=== PATIENT | female | born 1955 | race Caucasian/White ===

== ENCOUNTER 2019-06-01 08:17 | Emergency (ER) | payer OTHER ==
--- NOTE | 2019-06-01 08:51 | ED ---
General Adult HPI - General Chief complaint: Recheck/Abnormal Lab/Rx Stated complaint: High BP Time Seen by Provider: 06/01/19 08:20 Source: patient Mode of arrival: ambulatory Limitations: no limitations - History of Present Illness Initial comments: The patient is a 64-year-old female with past medical history of hypertension and hyperlipidemia who presents to the emergency room with reported high blood pressure. She states that she saw her primary care physician in office one month ago and blood pressure was high in office. She does take metoprolol 25 mg, half tab twice daily. The primary care doctor was requesting that she follow up for medication changes however states that she forgot. She was then out at the store on Monday with a headache blood pressure cuff. She measured her pressures and they were close to 190 systolic. She then began measuring her blood pressures with a cough that she has at home. Reports that they continue to be around 190 systolic. She called her primary care physician yesterday and they indicated that she should start taking 1 full tablet, twice daily. She did follow these instructions and took 2 tablets yesterday and one today. She took her blood pressure today before and approximately 45 minutes after taking the medication without improvement. Reports that she has a very dull headache without vision changes. This prompted her come in to the ER for further evaluation. She denies any unilateral numbness or weakness. No neck pain or stiffness. Denies any chest pain or short of breath. No abdominal pain. No recent illnesses. Denies any abdominal pain or changes in her bowel or bladder habits. There are no alleviating, precipitating or modifying factors - Related Data Previous Rx's Medication Instructions Recorded amLODIPine [Norvasc] 5 mg PO DAILY #14 tab 06/01/19 Allergies Allergy/AdvReac Type Severity Reaction Status Date / Time No Known Allergies Allergy Verified 06/01/19 08:23 Review of Systems ROS Statement: Those systems with pertinent positive or pertinent negative responses have been documented in the HPI. ROS Other: All systems not noted in ROS Statement are negative. Past Medical History Past Medical History: Hyperlipidemia, Hypertension History of Any Multi-Drug Resistant Organisms: None Reported Past Surgical History: No Surgical Hx Reported Past Psychological History: No Psychological Hx Reported Smoking Status: Current every day smoker Past Alcohol Use History: None Reported Past Drug Use History: None Reported General Exam Limitations: no limitations General appearance: alert, in no apparent distress Head exam: Present: atraumatic, normocephalic, normal inspection Eye exam: Present: normal appearance, PERRL, EOMI. Absent: scleral icterus, conjunctival injection, periorbital swelling ENT exam: Present: normal exam, mucous membranes moist Neck exam: Present: normal inspection. Absent: tenderness, meningismus, lymphadenopathy Respiratory exam: Present: normal lung sounds bilaterally. Absent: respiratory distress, wheezes, rales, rhonchi, stridor Cardiovascular Exam: Present: regular rate, normal rhythm, normal heart sounds. Absent: systolic murmur, diastolic murmur, rubs, gallop, clicks GI/Abdominal exam: Present: soft, normal bowel sounds. Absent: distended, tenderness, guarding, rebound, rigid Extremities exam: Present: normal inspection, full ROM, normal capillary refill. Absent: tenderness, pedal edema, joint swelling, calf tenderness Back exam: Present: normal inspection Neurological exam: Present: alert, oriented X3, CN II-XII intact Psychiatric exam: Present: normal affect, normal mood Skin exam: Present: warm, dry, intact, normal color. Absent: rash Course Vital Signs 06/01/19 06/01/19 06/01/19 08:20 09:13 09:58 Temperature 97.7 F 98.1 F Pulse Rate 67 63 63 Respiratory 16 16 16 Rate Blood Pressure 203/97 193/88 177/87 O2 Sat by Pulse 99 99 99 Oximetry 06/01/19 06/01/19 10:14 10:26 Temperature Pulse Rate 70 71 Respiratory 18 Rate Blood Pressure 160/77 134/75 O2 Sat by Pulse 99 Oximetry EKG Findings - EKG Comments: EKG Findings:: EKG demonstrates a normal sinus rhythm with ventricular rate 61. CA interval 160. QRS 134. QTC of 450. No acute ST segment elevation depressions concerning for ischemic changes. There is a right bundle branch block present. Medical Decision Making - Medical Decision Making Upon arrival the patient is placed in room 2. A thorough history and physical exam was performed she was hooked up to continuous pulse ox and cardiac monitoring. As the patient is reporting dull headache at did recommend CT of the patient's brain however she refuses. She did agree to laboratory studies. CBC and CMP. TSH is 1.9. The patient's blood pressure is reevaluated and she is persistently hypertensive therefore did give the patient 20 mg of hydralazine. Repeat vitals were obtained and the patient markedly improvement in her blood pressures to 134/75. I reevaluated the patient she states she feels much improved at this time. States that her headache is completely gone. At this time I will place the patient on amlodipine 5 mg daily. She is to keep a log of her blood pressures. She needs to follow-up with her primary care physician in order to have reevaluation of her blood pressure medications and blood pressure recordings. If she has any new or worsening symptoms she should return to the emergency room. The patient was discharged home in stable condition - Lab Data Result diagrams: 06/01/19 09:10 06/01/19 09:10 Lab Results 06/01/19 06/01/19 Range/Units 09:10 09:10 WBC 9.8 (3.8-10.6) k/uL RBC 5.33 (3.80-5.40) m/uL Hgb 16.1 H (11.4-16.0) gm/dL Hct 47.1 H (34.0-46.0) % MCV 88.4 (80.0-100.0) fL MCH 30.1 (25.0-35.0) pg MCHC 34.1 (31.0-37.0) g/dL RDW 11.9 (11.5-15.5) % Plt Count 287 (150-450) k/uL Neutrophils % 74 % Lymphocytes % 17 % Monocytes % 5 % Eosinophils % 2 % Basophils % 1 % Neutrophils # 7.3 (1.3-7.7) k/uL Lymphocytes # 1.7 (1.0-4.8) k/uL Monocytes # 0.5 (0-1.0) k/uL Eosinophils # 0.2 (0-0.7) k/uL Basophils # 0.1 (0-0.2) k/uL Sodium 140 (137-145) mmol/L Potassium 4.1 (3.5-5.1) mmol/L Chloride 107 (98-107) mmol/L Carbon Dioxide 24 (22-30) mmol/L Anion Gap 9 mmol/L BUN 12 (7-17) mg/dL Creatinine 0.66 (0.52-1.04) mg/dL Est GFR (CKD-EPI)AfAm >90 (>60 ml/min/1.73 sqM) Est GFR (CKD-EPI)NonAf >90 (>60 ml/min/1.73 sqM) Glucose 94 (74-99) mg/dL Calcium 10.0 (8.4-10.2) mg/dL Total Bilirubin 0.8 (0.2-1.3) mg/dL AST 28 (14-36) U/L ALT 18 (4-34) U/L Alkaline Phosphatase 66 (38-126) U/L Total Protein 7.5 (6.3-8.2) g/dL Albumin 4.4 (3.5-5.0) g/dL TSH 1.950 (0.465-4.680) mIU/L Disposition Clinical Impression: Hypertension, Headache Disposition: HOME SELF-CARE Condition: Stable Additional Instructions: Please take the blood pressure medication as directed, once daily in addition to the blood pressure medication you are already taking. You must follow-up with your primary care physician in order to have this medication adjusted. Keep a log of your blood pressures. Return to the emergency room for any new or worsening symptoms Prescriptions: amLODIPine [Norvasc] 5 mg PO DAILY #14 tab Is patient prescribed a controlled substance at d/c from ED?: No Referrals: Anne-Marie Mckinnon MD [Primary Care Provider] - 1-2 days Time of Disposition: 10:23
[2019-06-01 09:14] VITALS: TEMP 98.1
[2019-06-01] MEDS ORDERED: hydrALAZINE HCL 20 MG/ML 1 ML VIAL IVP STA (09:33)
[2019-06-01 09:42] LABS: Basophils # (A) 0.1 k/uL (0-0.2); Basophils % (A) 1 %; Eosinophils # (A) 0.2 k/uL (0-0.7); Eosinophils % (A) 2 %; HCT 47.1 % (34.0-46.0); HGB 16.1 gm/dL (11.4-16.0); Lymphocytes # (A) 1.7 k/uL (1.0-4.8); Lymphocytes % (A) 17 %; MCH 30.1 pg (25.0-35.0); MCHC 34.1 g/dL (31.0-37.0); MCV 88.4 fL (80.0-100.0); Monocytes # (A) 0.5 k/uL (0-1.0); Monocytes % (A) 5 %; Neutrophils # (A) 7.3 k/uL (1.3-7.7); Neutrophils % (A) 74 %; Platelet Count 287 k/uL (150-450); RBC 5.33 m/uL (3.80-5.40); RDW 11.9 % (11.5-15.5); WBC 9.8 k/uL (3.8-10.6)
[2019-06-01 09:53] LABS: ALT 18 U/L (4-34); AST 28 U/L (14-36); African American GFR (CKD) >90 (>60 ml/min/1.73 sqM); Albumin 4.4 g/dL (3.5-5.0); Alkaline Phosphatase 66 U/L (38-126); Anion Gap 9 mmol/L; Blood Urea Nitrogen 12 mg/dL (7-17); Carbon Dioxide 24 mmol/L (22-30); Chloride 107 mmol/L (98-107); Glucose 94 mg/dL (74-99); Non-African American GFR(CKD) >90 (>60 ml/min/1.73 sqM); Potassium 4.1 mmol/L (3.5-5.1); Sodium 140 mmol/L (137-145); Total Bilirubin 0.8 mg/dL (0.2-1.3); Total Protein 7.5 g/dL (6.3-8.2)
[2019-06-01 10:27] VITALS: BP 134/75; PULSE 71; RESP 18
== END 2019-06-01 10:40 | disposition home or self-care (01) ==
LOC: EC 08:17
DX: I10 Essential (primary) hypertension (principal); R51 Headache; F17.200 Nicotine dependence, unspecified, uncomplicated; Z53.29 Procedure and treatment not carried out because of patient's decision for other reasons
CPT/HCPCS: 36415; 93005; 80053; 84443; 85025; 99283; 96374; J0360

== ENCOUNTER 2019-11-07 19:29 | Emergency (ER) | payer OTHER ==
[2019-11-07 19:45] VITALS: TEMP 98
[2019-11-07] MEDS ORDERED: LABETALOL 5 MG/ML VIAL MDV IVP STA ×3 (20:04→21:19)
--- NOTE | 2019-11-07 20:07 | ED ---
General Adult HPI - General Chief complaint: Chest Pain Stated complaint: High BP Time Seen by Provider: 11/07/19 19:45 Source: patient, family, RN notes reviewed, old records reviewed Mode of arrival: ambulatory Limitations: no limitations - History of Present Illness Initial comments: This is a 64-year-old female who presents emergency Department because her blood pressure was high. Patient states she didn't take her blood pressure medicine this morning and she has been forgetting a quite a bit lately. Patient states she had a mild headache and she took 2 Motrin at that the headache away. Patient states she took her metoprolol at 5:00 but by 7:00 her blood pressure still elevated so she decided come in. Patient states when she got up to get out of the hammock she had a little bit of sharp chest pain that lasted only 2 seconds and went away and she thinks it was because she twisted really hard to get out of the hammock. Patient denies any shortness of breath or difficulty breathing. Patient does any chest pain since that episode. Patient denies any palpitations. Patient denies any diaphoretic episodes. Patient denies any nausea vomiting diarrhea. Patient denies any abdominal pain. - Related Data Previous Rx's Medication Instructions Recorded amLODIPine [Norvasc] 5 mg PO DAILY #14 tab 06/01/19 Allergies Allergy/AdvReac Type Severity Reaction Status Date / Time No Known Allergies Allergy Verified 11/07/19 19:45 Review of Systems ROS Statement: Those systems with pertinent positive or pertinent negative responses have been documented in the HPI. ROS Other: All systems not noted in ROS Statement are negative. Past Medical History Past Medical History: Hyperlipidemia, Hypertension History of Any Multi-Drug Resistant Organisms: None Reported Past Surgical History: No Surgical Hx Reported Past Psychological History: No Psychological Hx Reported Smoking Status: Current every day smoker Past Alcohol Use History: Rare Past Drug Use History: None Reported General Exam - General Exam Comments Initial Comments: GENERAL: Patient is well-developed and well-nourished. Patient is nontoxic and well- hydrated and is in mild distress. ENT: Neck is soft and supple. No significant lymphadenopathy is noted. Oropharynx is clear. Moist mucous membranes. Neck has full range of motion without eliciting any pain. EYES: The sclera were anicteric and conjunctiva were pink and moist. Extraocular movements were intact and pupils were equal round and reactive to light. Eyelids were unremarkable. PULMONARY: Unlabored respirations. Good breath sounds bilaterally. No audible rales rhonchi or wheezing was noted. CARDIOVASCULAR: There is a regular rate and rhythm without any murmurs gallops or rubs. ABDOMEN: Soft and nontender with normal bowel sounds. SKIN: Skin is clear with no lesions or rashes and otherwise unremarkable. NEUROLOGIC: Patient is alert and oriented x3. Cranial nerves II through XII are grossly intact. Motor and sensory are also intact. Normal speech, volume and content. Symmetrical smile. MUSCULOSKELETAL: Normal extremities with adequate strength and full range of motion. LYMPHATICS: No significant lymphadenopathy is noted PSYCHIATRIC: Normal psychiatric evaluation. Limitations: no limitations Course Vital Signs 11/07/19 11/07/19 11/07/19 19:42 20:08 20:10 Temperature 98 F Pulse Rate 73 71 76 Respiratory 18 18 16 Rate Blood Pressure 212/99 213/103 213/103 O2 Sat by Pulse 97 96 94 L Oximetry 11/07/19 11/07/19 11/07/19 20:13 20:20 20:39 Temperature Pulse Rate Respiratory Rate Blood Pressure 178/79 170/81 179/90 O2 Sat by Pulse Oximetry 11/07/19 11/07/19 20:46 21:43 Temperature Pulse Rate 74 67 Respiratory 18 18 Rate Blood Pressure 161/74 178/87 O2 Sat by Pulse 95 98 Oximetry Medical Decision Making - Medical Decision Making EKG shows normal sinus rhythm at 60 bpm NH interval is on a 54 QRS is 128 QT interval 436 QTC is 463. Patient's EKG shows some T-wave inversions in precordial leads V1 through V3 which are seen on old EKG. After patient received labetalol over skin down she is completely asymptomatic. Just prior to discharge he went up a little bit slightly give her 1.25 of Vasotec. Patient remained a symptomatically she was discharged home to follow- up with her primary medical care doctor and to start taking her blood pressure medication as prescribed - Lab Data Result diagrams: 11/07/19 20:07 11/07/19 20:07 Lab Results 11/07/19 11/07/19 11/07/19 Range/Units 20:07 20:07 20:07 WBC 9.5 (3.8-10.6) k/uL RBC 5.25 (3.80-5.40) m/uL Hgb 15.9 (11.4-16.0) gm/dL Hct 46.3 H (34.0-46.0) % MCV 88.3 (80.0-100.0) fL MCH 30.3 (25.0-35.0) pg MCHC 34.3 (31.0-37.0) g/dL RDW 12.3 (11.5-15.5) % Plt Count 251 (150-450) k/uL Neutrophils % 52 % Lymphocytes % 35 % Monocytes % 6 % Eosinophils % 3 % Basophils % 1 % Neutrophils # 5.0 (1.3-7.7) k/uL Lymphocytes # 3.4 (1.0-4.8) k/uL Monocytes # 0.6 (0-1.0) k/uL Eosinophils # 0.3 (0-0.7) k/uL Basophils # 0.1 (0-0.2) k/uL Sodium 140 (137-145) mmol/L Potassium 3.9 (3.5-5.1) mmol/L Chloride 106 (98-107) mmol/L Carbon Dioxide 23 (22-30) mmol/L Anion Gap 11 mmol/L BUN 16 (7-17) mg/dL Creatinine 0.75 (0.52-1.04) mg/dL Est GFR (CKD-EPI)AfAm >90 (>60 ml/min/1.73 sqM) Est GFR (CKD-EPI)NonAf 84 (>60 ml/min/1.73 sqM) Glucose 109 H (74-99) mg/dL Calcium 9.9 (8.4-10.2) mg/dL Magnesium 1.9 (1.6-2.3) mg/dL Total Bilirubin 0.3 (0.2-1.3) mg/dL AST 26 (14-36) U/L ALT 18 (4-34) U/L Alkaline Phosphatase 89 (38-126) U/L Troponin I <0.012 (0.000-0.034) ng/mL Total Protein 7.7 (6.3-8.2) g/dL Albumin 4.5 (3.5-5.0) g/dL Disposition Clinical Impression: Hypertensive urgency Disposition: HOME SELF-CARE Condition: Good Instructions (If sedation given, give patient instructions): Hypertension (ED) Is patient prescribed a controlled substance at d/c from ED?: No Referrals: Anne-Marie Mckinnon MD [Primary Care Provider] - 1-2 days Time of Disposition: 21:54
[2019-11-07 20:28] LABS: ALT 18 U/L (4-34); AST 26 U/L (14-36); African American GFR (CKD) >90 (>60 ml/min/1.73 sqM); Albumin 4.5 g/dL (3.5-5.0); Alkaline Phosphatase 89 U/L (38-126); Anion Gap 11 mmol/L; Blood Urea Nitrogen 16 mg/dL (7-17); Calcium 9.9 mg/dL (8.4-10.2); Carbon Dioxide 23 mmol/L (22-30); Chloride 106 mmol/L (98-107); Glucose 109 mg/dL (74-99); Magnesium 1.9 mg/dL (1.6-2.3); Non-African American GFR(CKD) 84 (>60 ml/min/1.73 sqM); Potassium 3.9 mmol/L (3.5-5.1); Sodium 140 mmol/L (137-145); Total Bilirubin 0.3 mg/dL (0.2-1.3); Total Protein 7.7 g/dL (6.3-8.2)
[2019-11-07 20:44] LABS: Basophils # (A) 0.1 k/uL (0-0.2); Basophils % (A) 1 %; Eosinophils # (A) 0.3 k/uL (0-0.7); Eosinophils % (A) 3 %; HCT 46.3 % (34.0-46.0); HGB 15.9 gm/dL (11.4-16.0); Lymphocytes # (A) 3.4 k/uL (1.0-4.8); Lymphocytes % (A) 35 %; MCH 30.3 pg (25.0-35.0); MCHC 34.3 g/dL (31.0-37.0); MCV 88.3 fL (80.0-100.0); Mean Platelet Volume 7.8; Monocytes # (A) 0.6 k/uL (0-1.0); Monocytes % (A) 6 %; Neutrophils % (A) 52 %; Platelet Count 251 k/uL (150-450); RBC 5.25 m/uL (3.80-5.40); RDW 12.3 % (11.5-15.5); WBC 9.5 k/uL (3.8-10.6)
[2019-11-07 20:47] VITALS: RESP 18
[2019-11-07] MEDS ORDERED: ENALAPRILAT 1.25 MG/ML 1 ML VIAL IVP STA (21:43)
[2019-11-07 22:00] VITALS: BP 166/82; PULSE 77
== END 2019-11-07 22:10 | disposition home or self-care (01) ==
LOC: EC 19:29
DX: I16.0 Hypertensive urgency (principal); F17.200 Nicotine dependence, unspecified, uncomplicated
CPT/HCPCS: 36415; 80053; 83735; 84484; 85025; 93005; 96374; 96375; 96376; 99285

== ENCOUNTER 2022-01-26 07:44 | Day surgery (SDC) | payer MEDICARE, OTHER ==
[~2022-01-26 07:44] MED LIST: LACTATED RINGERS 1,000 ML IV SCH; LIDOCAINE 1% (10MG/ML) FOR IV START INTRADERMA PRN
[2022-01-26] MEDS ORDERED: LIDOCAINE 1% (10MG/ML) FOR IV START INTRADERMA ONE (08:20)
[2022-01-26 08:29] VITALS: RESP 16; TEMP 97
[2022-01-26] MEDS ORDERED: LIDOCAINE 2% INJ 20 MG/ML (2 ML VIAL) ONE (09:07)
[2022-01-26] MEDS ORDERED: PROPOFOL 10 MG/ML 20 ML VIAL IV ONE (09:07)
--- NOTE | 2022-01-26 09:27 | P.PCN ---
Date of Procedure: 01/26/22 Procedure(s) Performed: BRIEF HISTORY: Patient is a 66-year-old pleasant white female scheduled for an elective colonoscopy as a part of evaluation of prior history of colon polyps. Last colonoscopy was 7 years ago. PROCEDURE PERFORMED: Colonoscopy with snare polypectomy. PREOPERATIVE DIAGNOSIS: History of colon polyps. IV sedation per Anesthesia. PROCEDURE: After informed consent was obtained, the patient, was brought into the endoscopy unit. IV sedation was administered by Anesthesia under continuous monitoring. Digital rectal examination was normal. Initially the Olympus CF-160 flexible video colonoscope was then inserted in the rectum, gradually advanced into the cecum without any difficulty. Careful examination was performed as the scope was gradually being withdrawn. Ileocecal valve and the appendiceal orifice were visualized and appeared normal. Prep was excellent. Mucosa of the cecum, ascending colon, appeared normal. In the hepatic flexure there was a 7 mm sessile polyp removed by snare polypectomy. Rest of the transverse colon, descending colon, sigmoid colon, and rectum appeared normal. In the proximal rectum there was a 5 mm polyp removed by snare polypectomy. Scattered sigmoid diverticulosis seen. Retroflexion was performed in the rectum and no lesions were seen. The patient tolerated the procedure well. IMPRESSION: 5 mm rectal polyp status post polypectomy 7 mm hepatic flexure polyp status post polypectomy Scattered sigmoid diverticulosis RECOMMENDATIONS: Findings of this examination were discussed with the patient as well his family. She was advised to follow with the biopsy results. If the biopsy results adenoma she can have a repeat colonoscopy in 5 years..
[2022-01-26 09:52] VITALS: BP 135/74; PULSE 70
== END 2022-01-26 10:02 | disposition home or self-care (01) ==
LOC: ORWHC2ENDO 07:44
PROVIDERS: ATTEND Internal Medicine Gastroenterology
DX: D12.3 Benign neoplasm of transverse colon (principal); D12.8 Benign neoplasm of rectum; K57.30 Diverticulosis of large intestine without perforation or abscess without bleeding; Z86.010 Personal history of colon polyps; I10 Essential (primary) hypertension; E78.5 Hyperlipidemia, unspecified; J45.909 Unspecified asthma, uncomplicated; F17.200 Nicotine dependence, unspecified, uncomplicated; Z87.442 Personal history of urinary calculi; Z88.5 Allergy status to narcotic agent; Z79.899 Other long term (current) drug therapy
CPT/HCPCS: 45385; J2704; J2001; 88305